=== PATIENT | female | born 1960 | race Caucasian/White ===

== ENCOUNTER 2018-08-15 08:59 | Emergency (ER) | payer OTHER ==
[~2018-08-15] VITALS: Ht 167.6 cm; Wt 61.2 kg
[~2018-08-15 08:59] MED LIST: CYCL10 PO; DARVON; DIPATR PO; ESTR.1TPW TOP; ESTR.625 PO; FAMC500 PO; HYDACE10B PO; HYDACE5 PO; IBUP200; IBUP800; IBUP800 PO; LEVFLO500 PO; ONDA4ODT MM; OXYACE5T PO; OXYACE7.5T; PROM25 PO; PROM50S PR; Percocet 5-3251 EACH PO; RANI150; RXHYDACE PO
[2018-08-15] MEDS ORDERED: IBUP600 PO (09:19)
[2018-08-15 09:20] LABS: Calcium, Ionized (POC) 1.09 mmol/L (1.10-1.46); Chloride (POC) 103 mmol/L (98-108); Creatinine (POC) 0.8 mg/dL (0.6-1.0); Glucose (ISTAT POC) 124 mg/dL (70-99); Sodium (POC) 138 mmol/L (135-148); Total CO2 (POC) 23 mmol/L (21-32)
== END 2018-08-15 10:19 | disposition home or self-care (01) ==
LOC: ER 08:59
PROVIDERS: Emergency Medicine
DX: I47.1 Supraventricular tachycardia (principal); Z88.6 Allergy status to analgesic agent; Z88.2 Allergy status to sulfonamides; Z88.8 Allergy status to other drugs, medicaments and biological substances
CPT/HCPCS: 36415; 80047; 85014; 93005; 93010; 96361; 96374; 99285-25; J0153; J7030

== ENCOUNTER 2020-07-17 15:53 | Emergency (ER) | payer OTHER ==
[~2020-07-17] VITALS: Ht 167.6 cm; Wt 68.0 kg
[~2020-07-17 15:53] MED LIST changes: +ACET325 PO; +IBUP600 PO; +MELOXICAM7.5 M1 PO; +METO25ER PO; +METPRE4DP PO; +Macrobid 100 M100 MG PO; +Norco 5-325 Ta1 EACH PO; +OMEPRAZOLE20 M2 PO; +Percocet 10-321 EACH PO; +ZYRTEC10 M2 PO
[2020-07-17 16:25] LABS: BASOPHILS ABSOLUTE AUTO 0.02 K/mm3 (0.00-0.23); BASOPHILS PERCENT AUTO 0 % (0-2); EOSINOPHILS ABSOLUTE AUTO 0.16 K/mm3 (0.00-0.68); EOSINOPHILS PERCENT AUTO 2 % (0-6); Hematocrit 45.2 % (33.0-51.0); Hemoglobin 14.5 g/dL (11.5-16.0); IMMATURE GRAN ABSOLUTE AUTO 0.02 K/mm3 (0.00-0.10); IMMATURE GRAN PERCENT AUTO 0 % (0-1); LYMPHOCYTES ABSOLUTE AUTO 2.76 K/mm3 (0.84-5.20); LYMPHOCYTES PERCENT AUTO 32 % (21-46); MONOCYTES ABSOLUTE AUTO 0.96 K/mm3 (0.16-1.47); MONOCYTES PERCENT AUTO 11 % (4-13); Mean Corpuscular HGB 28.4 pg (26.0-34.0); Mean Corpuscular HGB Conc 32.1 g/dL (31.5-36.5); Mean Corpuscular Volume 89 fL (80-100); Mean Platelet Volume 10.4 fL (9.1-12.4); NEUTROPHILS ABSOLUTE AUTO 4.66 K/mm3 (1.96-9.15); NEUTROPHILS PERCENT AUTO 54 % (41-73); Platelet Count 374 K/mm3 (150-400); RDW Coefficient Variation 13.5 % (11.7-14.2); RDW Standard Deviation 44.1 fL (35.1-46.3); Red Blood Cell Count 5.11 M/mm3 (3.80-5.20); White Blood Cell Count 8.58 K/mm3 (4.00-11.30)
[2020-07-17] MEDS ORDERED: ATOR40TA PO (16:28)
[2020-07-17] MEDS ORDERED: METO50ER PO (16:28)
[2020-07-17] MEDS ORDERED: CLOP75 PO (16:28)
[2020-07-17] MEDS ORDERED: ISOSORBIDE MONO30 MG PO (16:29)
[2020-07-17] MEDS ORDERED: OMEP20ER PO (16:30)
[2020-07-17] MEDS ORDERED: NITR.4SL SL (16:30)
[2020-07-17] MEDS ORDERED: ISOSORBIDE MONO60 MG PO (16:31)
[2020-07-17] MEDS ORDERED: METOPROLOL SUCC25 MG PO (16:31)
[2020-07-17 16:47] LABS: Alanine Aminotransfer (ALT/SGP 27 U/L (12-78); Albumin, Blood 4.6 g/dL (3.4-5.0); Albumin/Globulin Ratio 1.1 (0.8-1.8); Alk Phos 76 U/L (50-136); Anion Gap 10 mmol/L (6-16); Aspartate Aminotrans (AST/SGOT 31 U/L (12-37); Bilirubin, Total 0.4 mg/dL (0.1-1.0); Blood Urea Nitrogen 12 mg/dL (8-24); Bun/Creatinine Ratio 13.7 (12.0-20.0); CO2, Blood 24 mmol/L (21-32); Calcium, Blood 10.1 mg/dL (8.5-10.1); Chloride, Blood 105 mmol/L (98-108); Creatinine, Blood 0.88 mg/dL (0.40-1.00); Globulin, Blood 4.1 g/dL (2.2-4.0); Glomerular Filtration Rate >60 (60-); Glucose, Blood 86 mg/dL (70-99); Potassium, Blood 3.4 mmol/L (3.5-5.5); Sodium, Blood 139 mmol/L (136-145); Total Protein, Blood 8.7 g/dL (6.4-8.2); Troponin I <0.015 ng/mL (0.000-0.040)
[2020-07-17] MEDS ORDERED: Ativan1 MG SL (21:07)
== END 2020-07-17 21:45 | disposition home or self-care (01) ==
LOC: ER 15:53
PROVIDERS: Physician Assistant
DX: R07.89 Other chest pain (principal); R06.02 Shortness of breath; R42 Dizziness and giddiness; I10 Essential (primary) hypertension; Z88.2 Allergy status to sulfonamides; Z88.6 Allergy status to analgesic agent; Z91.013 Allergy to seafood; Z88.8 Allergy status to other drugs, medicaments and biological substances; Z91.030 Bee allergy status; Z79.02 Long term (current) use of antithrombotics/antiplatelets; Z79.899 Other long term (current) drug therapy; Z87.891 Personal history of nicotine dependence
CPT/HCPCS: 36415; 71046; 80053; 83880; 84484; 85025; 85379; 93005; 93010; 99285-25

== ENCOUNTER 2020-08-07 07:33 | Observation (INO) | payer OTHER ==
[~2020-08-07] VITALS: Ht 167.6 cm; Wt 66.0 kg
[~2020-08-07 07:33] MED LIST changes: +ATOR40TA PO; +Ativan1 MG SL; +CLOP75 PO; +ISOSORBIDE MONO30 MG PO; +ISOSORBIDE MONO60 MG PO; +METO50ER PO; +METOPROLOL SUCC25 MG PO; +NITR.4SL SL; +OMEP20ER PO
--- NOTE | 2020-08-07 08:28 | NUR ---
Pt received new iv left forearm #20 thomas well, infusing NS @ 125ml/hr. Pt cooperative. All rings on right hand removed secured for patient. Four rings.
--- NOTE | 2020-08-07 11:01 | NUR ---
Pt received from Annalee Blandon RN, 1040 Pt awake states pain in back lower back as well right wrist. Pt is turned to the left for comfort. Pt SB-SR HR regular. Pt with iv infusing @125/hr. 600 carlos NS infusing to the left fa iv grade o. Pt with call light next to patients hand. 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 Awaiting PCU bed.
--- NOTE | 2020-08-07 11:08 | NUR ---
Pt states pain of 8/10 back and right wrist.
--- NOTE | 2020-08-07 11:21 | NUR ---
Dr. Sandrita Prince called for pain medications for back pain. Orders received.
--- NOTE | 2020-08-07 11:35 | NUR ---
Pt medicated for back pain with good pain relief 01/28 from 06/30. Pt's nausea reduced and is nodding off.
--- NOTE | 2020-08-07 12:49 | NUR ---
ADMIT TO PCU 2 FROM [facility]. A/A/OX4. TR BAND TO RIGHT RADIAL SITE. 9ML AIR TOTAL AT THIS TIME. 3ML REMOVED PRIOR TO ASSUMING CARE. MOVES RIGHT FINGERS WITHOUT DIFFICUTLY. DENIES FINGER PAIN OR NUMBNESS, RADIAL PULSE PALPABLE. SLIGHT HEMATOMA NOTED ABOVE BAND, WILL CONTINUE TO MONITOR. RIGHT FINGERS SLIGHTLY DUSKY, CAP REFILL <3. WILL CONTINUE TO MONITOR.
--- NOTE | 2020-08-07 14:14 | NUR ---
AIR REMOVED FROM RIGHT TR BAND IN 2ML INCRIMENTS OVER A HOUR. NO BLEEDING. ARM BOARD IN PLACE. RT BAND REMAINS ON. CAP REFILL <3, RADIAL PULSE PALPABLE. WILL CONTINUE TO MONITOR.
--- NOTE | 2020-08-07 16:35 | NUR ---
TR BAND REMOVED, TEGADERM IN PLACE
--- NOTE | 2020-08-07 18:19 | NUR ---
SHIFT SUMMARY; ADMIT TO PCU POST ANGIO CATH. A/A/OX4 THROUGHOUT SHIFT. TR BAND REMOVED WITHOUT COMPLICATIONS, TEGADERM IN PLACE, ARM BOARD IN PLACE. INDEPENDANT IN ROOM, L/S CLEAR, DENIES CHEST PAIN. WILL CONTINUE TO MONITOR AND TREAT UNTIL CHANGE OF SHIFT.
--- NOTE | 2020-08-07 21:13 | NUR ---
CARE ASSUMPTION PT A&O X4. VSS. MONITOR SHOWS SR, HR 70's. SPO2 > 92% ON RA. R RADIAL ACCESS SITE WNL W/ NO BLEEDING, NO HEMATOMA. ARM BOARD IN PLACE TO SITE. PT DENIES PAIN/DISCOMFORT. WILL CONTINUE TO MONITOR & PROVIDE CARE.
[2020-08-08 04:20] LABS: BASOPHILS ABSOLUTE AUTO 0.02 K/mm3 (0.00-0.23); BASOPHILS PERCENT AUTO 0 % (0-2); EOSINOPHILS ABSOLUTE AUTO 0.12 K/mm3 (0.00-0.68); EOSINOPHILS PERCENT AUTO 1 % (0-6); Hematocrit 39.1 % (33.0-51.0); Hemoglobin 12.6 g/dL (11.5-16.0); IMMATURE GRAN ABSOLUTE AUTO 0.03 K/mm3 (0.00-0.10); IMMATURE GRAN PERCENT AUTO 0 % (0-1); LYMPHOCYTES PERCENT AUTO 28 % (21-46); MONOCYTES ABSOLUTE AUTO 0.89 K/mm3 (0.16-1.47); MONOCYTES PERCENT AUTO 10 % (4-13); Mean Corpuscular HGB 28.9 pg (26.0-34.0); Mean Corpuscular HGB Conc 32.2 g/dL (31.5-36.5); Mean Corpuscular Volume 90 fL (80-100); Mean Platelet Volume 10.8 fL (9.1-12.4); NEUTROPHILS ABSOLUTE AUTO 5.28 K/mm3 (1.96-9.15); NEUTROPHILS PERCENT AUTO 60 % (41-73); Platelet Count 309 K/mm3 (150-400); RDW Standard Deviation 45.9 fL (35.1-46.3); Red Blood Cell Count 4.36 M/mm3 (3.80-5.20); White Blood Cell Count 8.74 K/mm3 (4.00-11.30)
[2020-08-08 04:41] LABS: Anion Gap 5 mmol/L (6-16); Blood Urea Nitrogen 18 mg/dL (8-24); Bun/Creatinine Ratio 22.3 (12.0-20.0); CO2, Blood 27 mmol/L (21-32); Chloride, Blood 107 mmol/L (98-108); Creatinine, Blood 0.81 mg/dL (0.40-1.00); Glomerular Filtration Rate >60 (60-); Glucose, Blood 88 mg/dL (70-99); Potassium, Blood 3.8 mmol/L (3.5-5.5); Sodium, Blood 139 mmol/L (136-145)
--- NOTE | 2020-08-08 05:43 | NUR ---
SHIFT SUMMARY PT CONTINUES TO BE A&O X4. VSS. MONITOR SHOWING SR, HR 60's-70's. SPO2 > 92% ON RA. NO EVENTS OVER NIGHT. PT REPORTS RFA "TENDER" THIS AM. R RADIAL ACCESS SITE WNL W/ NO BLEEDING, NO HEMATOMA, & ARM BOARD IN PLACE. WILL CONTINUE TO MONITOR & PROVIDE CARE UNTIL REPORT OFF TO DAY SHIFT RN.
[2020-08-08] MEDS ORDERED: PANT40 PO (08:49)
[2020-08-08] MEDS ORDERED: TICA90TA PO (11:27)
--- NOTE | 2020-08-08 12:37 | NUR ---
DISCHARGE INSTRUCTIONS GONE OVER WITH PT. INSTRUCTED PT ON NEW MEDICATIONS AND FOLLOW UP. PT STATED UNDERSTANDING. BELONGINGS GATHERED AND GIVEN TO PT. PT WAS ESCORTED OUT BY WHEELCHAIR WITH DISCHARGE VOLUNTEER. PRIOR TO DISCHARGE PT WAS NOTED TO HAVE NO SIGNS OR SYMPTOMS RELATED TO POSSIBLE ALLERGIC REACTION TO NEW MEDICATION.
== END 2020-08-08 12:36 | disposition home or self-care (01) ==
LOC: MHTC 07:33 → PCU 12:08 → MHTC 12:27 → PCU 08-08 12:36
PROVIDERS: ADMIT Internal Medicine Interventional Cardiology
DX: I25.110 Atherosclerotic heart disease of native coronary artery with unstable angina pectoris (principal); I10 Essential (primary) hypertension; E78.5 Hyperlipidemia, unspecified; Z88.6 Allergy status to analgesic agent; Z20.828 Contact with and (suspected) exposure to other viral communicable diseases; Z88.2 Allergy status to sulfonamides; Z88.1 Allergy status to other antibiotic agents; Z91.038 Other insect allergy status; Z91.013 Allergy to seafood; Z79.899 Other long term (current) drug therapy; Z79.02 Long term (current) use of antithrombotics/antiplatelets
CPT/HCPCS: 36415; 76937; 80048; 85025; 85347; 93458; 96372; 99152; 99153; A9270-GY; C1725; C1769; C1874; C1887; C1894; C9600; G0378; J1200; J1644; J1720; J2250; J2405; J3010; J7030; Q9967

== ENCOUNTER 2020-09-04 06:06 | Day surgery (SDC) | payer OTHER ==
[~2020-09-04 06:06] MED LIST changes: +PANT40 PO; +TICA90TA PO
[2020-09-04] MEDS ORDERED: METO25ER PO (10:42)
--- NOTE | 2020-09-04 12:30 | NUR ---
12CC AIR REMOVED FROM R WRIST TR BAND. -BLEEDING OR SWELLING.
--- NOTE | 2020-09-04 13:44 | NUR ---
R WRIST TR BAND REMOVED. -BLEEDING OR SWELLING. PUNCTURE AREA CLEANED /C NS AND DOT CLOTH DRSG PLACED. R WRIST SPLINT REAPPLIED.
--- NOTE | 2020-09-04 15:12 | NUR ---
DISCHARGE GONE OVER WITH PT, VERBALIZES UNDERSTANDING. SALINE LOCK REMOVED. PT TO PRIVATE VEHICLE PER W/C.
== END 2020-09-04 15:00 | disposition home or self-care (01) ==
LOC: MHTC 06:06
DX: I25.10 Atherosclerotic heart disease of native coronary artery without angina pectoris (principal); I11.0 Hypertensive heart disease with heart failure; I50.9 Heart failure, unspecified; E78.5 Hyperlipidemia, unspecified; Z79.899 Other long term (current) drug therapy; Z79.02 Long term (current) use of antithrombotics/antiplatelets; Z95.5 Presence of coronary angioplasty implant and graft; Z88.2 Allergy status to sulfonamides; Z88.8 Allergy status to other drugs, medicaments and biological substances; Z88.6 Allergy status to analgesic agent; Z91.030 Bee allergy status; Z91.013 Allergy to seafood
CPT/HCPCS: 76937; 85347; 93454; 99152; 99153; C1725; C1769; C1874; C1887; C1894; C9600; J1200; J1644; J1720; J2250; J2405; J3010; J7030; J7050; Q9967

== ENCOUNTER 2022-05-03 08:38 | Emergency (ER) | payer MEDICARE ==
[~2022-05-03] VITALS: Ht 165.1 cm; Wt 61.2 kg
[2022-05-03 10:17] LABS: Influenza A, PCR NEGATIVE (NEGATIVE); Influenza B, PCR NEGATIVE (NEGATIVE); Resp Syncytial Virus, PCR NEGATIVE (NEGATIVE)
[2022-05-03 10:34] LABS: SARS-Cov-2 (COVID-19) PCR, MMC POSITIVE (NEGATIVE)
[2022-05-03 10:43] LABS: BASOPHILS ABSOLUTE AUTO 0.02 K/mm3 (0.00-0.23); BASOPHILS PERCENT AUTO 0 % (0-2); EOSINOPHILS PERCENT AUTO 0 % (0-6); Hematocrit 40.9 % (33.0-51.0); Hemoglobin 13.5 g/dL (11.5-16.0); IMMATURE GRAN ABSOLUTE AUTO 0.03 K/mm3 (0.00-0.10); IMMATURE GRAN PERCENT AUTO 1 % (0-1); LYMPHOCYTES ABSOLUTE AUTO 1.23 K/mm3 (0.84-5.20); LYMPHOCYTES PERCENT AUTO 19 % (21-46); MONOCYTES ABSOLUTE AUTO 1.11 K/mm3 (0.16-1.47); MONOCYTES PERCENT AUTO 17 % (4-13); Mean Corpuscular HGB 29.2 pg (26.0-34.0); Mean Corpuscular Volume 89 fL (80-100); Mean Platelet Volume 11.3 fL (9.1-12.4); NEUTROPHILS ABSOLUTE AUTO 4.05 K/mm3 (1.96-9.15); NEUTROPHILS PERCENT AUTO 63 % (41-73); Platelet Count 255 K/mm3 (150-400); RDW Standard Deviation 45.3 fL (35.1-46.3); Red Blood Cell Count 4.62 M/mm3 (3.80-5.20); White Blood Cell Count 6.44 K/mm3 (4.00-11.30)
[2022-05-03 10:54] LABS: Albumin, Blood 3.9 g/dL (3.4-5.0); Albumin/Globulin Ratio 1.1 (0.8-1.8); Bilirubin, Total 0.4 mg/dL (0.1-1.0); Bun/Creatinine Ratio 15.2 (12.0-20.0); Calcium, Blood 9.5 mg/dL (8.5-10.1); Creatinine, Blood 0.73 mg/dL (0.40-1.00); Globulin, Blood 3.4 g/dL (2.2-4.0); Potassium, Blood 3.4 mmol/L (3.5-5.5); Total Protein, Blood 7.3 g/dL (6.4-8.2)
[2022-05-03 11:29] LABS: Source, Urine Clean Catch
[2022-05-03 11:36] LABS: Appearance, Urine Clear (Clear); Bilirubin, Urine Neg (Neg); Blood, Urine 2+ (Neg); Color, Urine Yellow (P-Yellow); Glucose Qualitative, Urine Neg (Neg); Ketones, Urine 4+ (Neg); Leukocyte Esterase, Urine Neg (Neg); Nitrite, Urine Pos (Neg); Protein, Urine 1+ (Neg); Urobilinogen, Urine NORM (Normal)
[2022-05-03 11:45] LABS: Bacteria Many /hpf; Squamous Epithelial Cells Few /hpf (Few); White Blood Cells, Urine 0-2 /hpf (0-5)
[2022-05-03] MEDS ORDERED: ONDA4ODT MM (12:44)
[2022-05-03] MEDS ORDERED: NITR100CA PO (12:44)
== END 2022-05-03 13:54 | disposition home or self-care (01) ==
LOC: ER 08:38
PROVIDERS: Physician Assistant
DX: U07.1 COVID-19 (principal); N39.0 Urinary tract infection, site not specified; I10 Essential (primary) hypertension; Z79.899 Other long term (current) drug therapy; Z88.2 Allergy status to sulfonamides; Z91.030 Bee allergy status; Z91.013 Allergy to seafood; Z95.5 Presence of coronary angioplasty implant and graft; Z87.891 Personal history of nicotine dependence
CPT/HCPCS: 0241U; 36415; 80053; 81001; 83690; 85025; J2405; J3010; J7030

== ENCOUNTER 2023-05-21 15:56 | Emergency (ER) | payer MEDICARE, OTHER ==
[~2023-05-21] VITALS: Ht 167.6 cm; Wt 63.5 kg
[~2023-05-21 15:56] MED LIST changes: +NITR100CA PO
[2023-05-21] MEDS ORDERED: Cyclobenzaprine5 MG PO (16:13)
[2023-05-21 17:19] LABS: BASOPHILS ABSOLUTE AUTO 0.04 K/mm3 (0.00-0.23); BASOPHILS PERCENT AUTO 0 % (0-2); EOSINOPHILS ABSOLUTE AUTO 0.14 K/mm3 (0.00-0.68); EOSINOPHILS PERCENT AUTO 2 % (0-6); Hematocrit 37.6 % (33.0-51.0); Hemoglobin 12.3 g/dL (11.5-16.0); IMMATURE GRAN ABSOLUTE AUTO 0.05 K/mm3 (0.00-0.10); IMMATURE GRAN PERCENT AUTO 1 % (0-1); LYMPHOCYTES ABSOLUTE AUTO 1.45 K/mm3 (0.84-5.20); LYMPHOCYTES PERCENT AUTO 15 % (21-46); MONOCYTES ABSOLUTE AUTO 0.91 K/mm3 (0.16-1.47); MONOCYTES PERCENT AUTO 10 % (4-13); Mean Corpuscular HGB 28.8 pg (26.0-34.0); Mean Corpuscular HGB Conc 32.7 g/dL (31.5-36.5); Mean Corpuscular Volume 88 fL (80-100); Mean Platelet Volume 11.1 fL (9.1-12.4); NEUTROPHILS ABSOLUTE AUTO 6.85 K/mm3 (1.96-9.15); NEUTROPHILS PERCENT AUTO 73 % (41-73); Platelet Count 279 K/mm3 (150-400); RDW Coefficient Variation 15.2 % (11.7-14.2); Red Blood Cell Count 4.27 M/mm3 (3.80-5.20); White Blood Cell Count 9.44 K/mm3 (4.00-11.30)
[2023-05-21 17:36] LABS: Albumin, Blood 3.3 g/dL (3.4-5.0); Albumin/Globulin Ratio 0.9 (0.8-1.8); Bilirubin, Total 0.3 mg/dL (0.1-1.0); Bun/Creatinine Ratio 17.7 (12.0-20.0); Calcium, Blood 8.9 mg/dL (8.5-10.1); Creatinine, Blood 0.85 mg/dL (0.40-1.00); Globulin, Blood 3.6 g/dL (2.2-4.0); Potassium, Blood 3.9 mmol/L (3.5-5.5); Total Protein, Blood 6.9 g/dL (6.4-8.2)
[2023-05-21 19:43] VITALS: BP 101/77
== END 2023-05-21 19:42 | disposition home or self-care (01) ==
LOC: ER 15:56
PROVIDERS: Emergency Medicine
DX: R55 Syncope and collapse (principal); I10 Essential (primary) hypertension; Z87.442 Personal history of urinary calculi; Z88.6 Allergy status to analgesic agent; Z88.2 Allergy status to sulfonamides; Z91.030 Bee allergy status; Z91.013 Allergy to seafood; Z79.899 Other long term (current) drug therapy; Z87.891 Personal history of nicotine dependence
CPT/HCPCS: 80053; 84484; 85025; 93005; 93010; 99284-25

== ENCOUNTER 2024-10-05 19:15 | Emergency (ER) | payer MEDICARE, OTHER ==
[~2024-10-05] VITALS: Ht 167.6 cm; Wt 62.6 kg
[~2024-10-05 19:15] MED LIST changes: +Cyclobenzaprine5 MG PO
[2024-10-05 19:20] VITALS: BP 119/100
[2024-10-05 19:53] LABS: BASOPHILS ABSOLUTE AUTO 0.04 K/mm3 (0.00-0.23); BASOPHILS PERCENT AUTO 0 % (0-2); EOSINOPHILS ABSOLUTE AUTO 0.29 K/mm3 (0.00-0.68); EOSINOPHILS PERCENT AUTO 2 % (0-6); Hematocrit 41.5 % (33.0-51.0); IMMATURE GRAN ABSOLUTE AUTO 0.07 K/mm3 (0.00-0.10); IMMATURE GRAN PERCENT AUTO 1 % (0-1); LYMPHOCYTES ABSOLUTE AUTO 2.39 K/mm3 (0.84-5.20); LYMPHOCYTES PERCENT AUTO 16 % (21-46); MONOCYTES ABSOLUTE AUTO 1.14 K/mm3 (0.16-1.47); MONOCYTES PERCENT AUTO 7 % (4-13); Mean Corpuscular HGB 29.9 pg (26.0-34.0); Mean Corpuscular HGB Conc 33.7 g/dL (31.5-36.5); Mean Corpuscular Volume 89 fL (80-100); Mean Platelet Volume 10.5 fL (9.1-12.4); NEUTROPHILS ABSOLUTE AUTO 11.45 K/mm3 (1.96-9.15); NEUTROPHILS PERCENT AUTO 74 % (41-73); Platelet Count 356 K/mm3 (150-400); RDW Coefficient Variation 14.4 % (11.7-14.2); RDW Standard Deviation 46.5 fL (35.1-46.3); Red Blood Cell Count 4.69 M/mm3 (3.80-5.20); White Blood Cell Count 15.38 K/mm3 (4.00-11.30)
[2024-10-05 20:07] LABS: International Normalized Ratio 0.98; Prothrombin Time Results 10.5 Sec (9.7-11.5)
[2024-10-05 20:15] LABS: Albumin, Blood 4.3 g/dL (3.4-5.0); Albumin/Globulin Ratio 1.2 (0.8-1.8); Bilirubin, Total 0.4 mg/dL (0.1-1.0); Bun/Creatinine Ratio 27.9 (12.0-20.0); Calcium, Blood 10.3 mg/dL (8.5-10.1); Creatinine, Blood 0.79 mg/dL (0.40-1.00); Globulin, Blood 3.6 g/dL (2.2-4.0); Potassium, Blood 3.6 mmol/L (3.5-5.5); Total Protein, Blood 7.9 g/dL (6.4-8.2)
== END 2024-10-05 20:30 | disposition left against medical advice (07) ==
LOC: ER 19:15
PROVIDERS: Physician Assistant
DX: R53.1 Weakness (principal); Z53.29 Procedure and treatment not carried out because of patient's decision for other reasons
CPT/HCPCS: 80053; 85025; 85610; 85730; 93005; 93010; 99282-25

== ENCOUNTER 2024-11-19 06:49 | Day surgery (SDC) | payer MEDICARE, OTHER ==
[~2024-11-19] VITALS: Ht 165.1 cm; Wt 65.4 kg
[~2024-11-19 06:49] MED LIST changes: +Dexamethasone Sod Phos 10 MG/ML 1ML VIAL ONE; +FentaNYL Citrate 50 MCG/ML 2 ML Injection ONE; +Ketorolac Tromethamine 30mg Vial ONE; +Lidocaine HCl 2% 10 ML SDA ONE; +Midazolam HCl 1MG / ML 2ML Vial ONE; +Ondansetron HCl 2 MG / ML 2ML Vial ONE; +Ropivacaine 0.5% HCL/PF 5 MG/ML 30ML Vial ONE; +propofoL 40 ML IV ONE
[2024-11-19] MEDS ORDERED: ISOSORBIDE MONO30 MG PO (07:20)
[2024-11-19] MEDS ORDERED: CENTRUM SILVER1 EAC2 PO (07:21)
[2024-11-19] MEDS ORDERED: HYDROCODONE-AC1 EA19 PO (07:21)
[2024-11-19] MEDS ORDERED: POLY500 PO (07:21)
[2024-11-19] MEDS ORDERED: Lactated Ringer's 1,000 ML IV ONE ×2 (07:34→08:09)
[2024-11-19] MEDS ORDERED: Clindamycin 900mg in D5W 50ML 50 ML IV ONE (08:09)
[2024-11-19] MEDS ORDERED: propofoL 20 ML IV ONE (08:35)
[2024-11-19] MEDS ORDERED: Glycopyrrolate 0.2 MG/ML 5ML VIAL ONE (08:51)
[2024-11-19] MEDS ORDERED: Phenylephrine HCl 100 MCG/ML-NS 10MLSYR (1MG/10ML) ONE ×2 (08:51→08:52)
[2024-11-19] MEDS ORDERED: HYDROcodone 5-APAP 325 TAB ONE (10:05)
[2024-11-19 10:41] VITALS: BP 143/91
== END 2024-11-19 10:21 | disposition home or self-care (01) ==
LOC: ORSCSDS 06:49
PROVIDERS: Podiatrist Foot & Ankle Surgery
PROC: 0QSQ04Z Reposition Right Toe Phalanx with Internal Fixation Device, Open Approach (ICD-10-PCS; principal; 2024-11-19 08:15)
PROC: 0QSN04Z Reposition Right Metatarsal with Internal Fixation Device, Open Approach (ICD-10-PCS; principal; 2024-11-19 08:15)
DX: M20.11 Hallux valgus (acquired), right foot (principal); M79.671 Pain in right foot; I10 Essential (primary) hypertension; E11.9 Type 2 diabetes mellitus without complications; K21.9 Gastro-esophageal reflux disease without esophagitis; I25.10 Atherosclerotic heart disease of native coronary artery without angina pectoris; F32.A Depression, unspecified; Z79.899 Other long term (current) drug therapy; Z79.84 Long term (current) use of oral hypoglycemic drugs
CPT/HCPCS: A9270; C1713; J1100; J1885; J2003; J2250; J2371; J2405; J2704; J2795; J3010; J7120